=== PATIENT | male | born 1960 | race Asian ===

== ENCOUNTER 2022-12-09 21:31 | Inpatient (IN) | payer MEDICARE, MEDICAID ==
[~2022-12-09] VITALS: Ht 167.6 cm; Wt 74.8 kg
[2022-12-09] MEDS ORDERED: SODIUM CHLORIDE 0.9% 1000ML BAG (SEPSIS BOLUS) IV ONE (22:15)
[2022-12-09] MEDS ORDERED: METHYLPREDNISOLONE SOD SUCC 125 MG/2 ML VIAL IV STA (22:26)
[2022-12-09] MEDS ORDERED: IPRATROPIUM BROMIDE (0.02%) 0.5MG/2.5ML NEB HHN STA (22:26)
[2022-12-09] MEDS ORDERED: PIPERACILLIN/TAZ 3.375G PREMIX 50 ML IV NR (22:30)
[2022-12-09] MEDS ORDERED: ALBUTEROL (0.083%) 2.5MG/3ML NEB HHN SCH (22:30)
[2022-12-09] MEDS: VANCOMYCIN 1G PREMIX 200 ML IV NR (22:30)
[2022-12-09 22:31] LABS: CHLORIDE 108 mEq/L (98-107)
[2022-12-09 22:35] LABS: HEMATOCRIT. 46.4 % (42.0-52.0); HEMOGLOBIN. 14.9 g/dL (14.0-18.0); MEAN CORPUSCULAR VOLUME 90.1 fL (80.0-94.0); MEAN PLATELET VOLUME 7.1 fl (7.4-10.4); PLATELET 363 x1000/uL (130-400); RED BLOOD CELL COUNT 5.15 mill/uL (4.7-6.1)
[2022-12-09 23:18] LABS: PLATELET ESTIMATE NORMAL
[2022-12-10 00:33] LABS: BG CARBOXYHEMOGLOBIN 1.9 % (0.5-1.5); BG DEOXYHEMOGLOBIN 11.2 % (0.0-5.0); BG FRACTION INSPIRED OXYGEN 40; BG HCO3 ACT 19.5 mmol/L (22.0-26.0); BG METHEMOGLOBIN 0.3 % (0.0-1.5); BG OXYGEN SATURATION 88.5 % (92.0-98.5); BG OXYHEMOGLOBIN 86.6 % (94.0-97.0); BG PCO2 31.7 mmHg (35.0-45.0); BG PH 7.407 (7.350-7.450); BG PO2 54.6 mmHg (75.0-100.0); BG SAMPLE SITE RIGHT BRACHIAL; BG VENT MODE NASAL CANNULA
[2022-12-10] MEDS: VANCOMYCIN 1G PREMIX 200 ML IV NR ×3 (03:08→06:08)
[2022-12-10 09:38] LABS: BG BASE EXCESS -2.4 mmol/L (-2.0-2.0); BG CARBOXYHEMOGLOBIN 0.5 % (0.5-1.5); BG FRACTION INSPIRED OXYGEN 32; BG HCO3 ACT 22.5 mmol/L (22.0-26.0); BG METHEMOGLOBIN 0.3 % (0.0-1.5); BG OXYGEN SATURATION 92.9 % (92.0-98.5); BG OXYHEMOGLOBIN 92.2 % (94.0-97.0); BG PCO2 39.1 mmHg (35.0-45.0); BG PH 7.377 (7.350-7.450); BG PO2 67.1 mmHg (75.0-100.0); BG SAMPLE SITE RIGHT RADIAL; BG VENT MODE NASAL CANNULA
[2022-12-10] MEDS ORDERED: ALBUTEROL (0.083%) 2.5MG/3ML NEB HHN PRN (13:30)
[2022-12-10] MEDS ORDERED: FUROSEMIDE 40MG/4ML VIAL IVP NR (13:30)
[2022-12-10] MEDS ORDERED: IPRATROPIUM BROMIDE (0.02%) 0.5MG/2.5ML NEB HHN PRN (13:30)
[2022-12-10] MEDS ORDERED: PIPERACILLIN/TAZ 3.375G PREMIX 50 ML IV NR (14:00)
[2022-12-10] MEDS: IPRATROPIUM BROMIDE (0.02%) 0.5MG/2.5ML NEB HHN SCH (14:20)
[2022-12-10] MEDS ORDERED: AZITHROMYCIN 500MG/250ML 250 ML IV NR (18:00)
[2022-12-10 21:00] VITALS: BP 123/93
[2022-12-10 22:00] VITALS: BP 141/91
[2022-12-10] MEDS ORDERED: PIPERACILLIN/TAZOBACTAM 3.375 G in DEXTROSE 5% WATER 50 ML IV SCH (22:00)
[2022-12-10 23:14] LABS: CLARITY URINE CLEAR (CLEAR); COLOR URINE YELLOW (YELLOW); KETONES URINE NEGATIVE (NEGATIVE); LEUKOCYTE ESTERASE URINE TRACE (NEGATIVE); NITRITE URINE NEGATIVE (NEGATIVE); OCCULT BLOOD URINE 2+ (NEGATIVE); PH URINE 5.5 (4.5-8.0); PROTEIN URINE TRACE (NEGATIVE); SPECIFIC GRAVITY URINE 1.016 (1.005-1.030)
[2022-12-11] VITALS (13 sets, daily range): BP systolic 96–161; BP diastolic 57–115
[2022-12-11] MEDS: ALBUTEROL (0.083%) 2.5MG/3ML NEB HHN SCH ×4 (01:27→20:22)
[2022-12-11] MEDS: IPRATROPIUM BROMIDE (0.02%) 0.5MG/2.5ML NEB HHN SCH ×4 (01:27→20:22)
[2022-12-11] MEDS ORDERED: ASPI-1497 MT (03:11)
[2022-12-11] MEDS ORDERED: POLY17PO43 MT (03:11)
[2022-12-11] MEDS ORDERED: LURA60TA PO (03:11)
[2022-12-11] MEDS ORDERED: DOCU250C69 MT (03:11)
[2022-12-11] MEDS ORDERED: TAMS-11 MT (03:11)
[2022-12-11] MEDS ORDERED: OXYB5TAB17 PO (03:11)
[2022-12-11] MEDS ORDERED: HALO5TAB PO (03:11)
[2022-12-11] MEDS ORDERED: GLYC2TAB21 MT (03:11)
[2022-12-11] MEDS ORDERED: LOPE2CAP PO (03:11)
[2022-12-11] MEDS ORDERED: TEMA15CA PO (03:11)
[2022-12-11] MEDS ORDERED: HYDR453.3 TP (03:11)
[2022-12-11] MEDS ORDERED: CLOZ100T35 MT (03:11)
[2022-12-11] MEDS ORDERED: LORA2DIS6 IJ (03:11)
[2022-12-11] MEDS ORDERED: CALC-959 MT (03:11)
[2022-12-11] MEDS ORDERED: METO25TA6 MT (03:11)
[2022-12-11] MEDS ORDERED: OMEP20CA14 MT (03:11)
[2022-12-11] MEDS: PIPERACILLIN/TAZOBACTAM 3.375 G in DEXTROSE 5% WATER 50 ML IV SCH ×3 (06:44→20:57)
[2022-12-11 09:23] LABS: HEMATOCRIT. 38.8 % (42.0-52.0); HEMOGLOBIN. 12.9 g/dL (14.0-18.0); MEAN CORPUSCULAR HEMOGLOBIN 29.4 pg (28.0-32.0); MEAN CORPUSCULAR VOLUME 88.3 fL (80.0-94.0); PLATELET 353 x1000/uL (130-400); RED BLOOD CELL COUNT 4.39 mill/uL (4.7-6.1); RED CELL DISTRIBUTION WIDTH 13.1 % (11.6-14.6)
[2022-12-11] MEDS ORDERED: DIAZEPAM 5 MG/ML 2ML CPJ IV NR (09:45)
[2022-12-11 09:48] LABS: CHLORIDE 112 mEq/L (98-107)
[2022-12-11] MEDS ORDERED: HALOPERIDOL LACTATE 5MG/ML VIAL IM SCH (10:00)
[2022-12-11 12:06] LABS: PLATELET ESTIMATE NORMAL
[2022-12-11] MEDS: QUETIAPINE FUMARATE 25MG TABLET PO SCH ×2 (12:38→20:53)
[2022-12-11] MEDS: OMEPRAZOLE 20MG CAPSULE EXTENDED RELEASE PO SCH (12:38)
[2022-12-11] MEDS: OXYBUTYNIN CHLORIDE 5MG TABLET PO SCH (12:39)
[2022-12-11] MEDS: DILTIAZEM HCL 30MG TABLET PO SCH ×3 (12:39→23:54)
[2022-12-11] MEDS: METOPROLOL TARTRATE 25MG TABLET PO SCH ×2 (12:42→17:37)
[2022-12-11] MEDS ORDERED: POTASSIUM CHLORIDE 20MEQ TABLET SR PO NR (14:15)
[2022-12-11 17:00] LABS: INR 1.1; PROTHROMBIN TIME 11.3 sec (9.6-11.0)
[2022-12-11] MEDS: AZITHROMYCIN 500 MG in DEXT 5% WATER 250 ML IV SCH (17:36)
[2022-12-11] MEDS ORDERED: AZITHROMYCIN 500 MG in DEXT 5% WATER 250 ML IV SCH (18:00)
[2022-12-11] MEDS ORDERED: SODIUM CHLORIDE 0.9% 1,000 ML IV SCH (18:45)
[2022-12-11] MEDS: TAMSULOSIN HCL 0.4MG SR CAPSULE PO SCH (20:54)
[2022-12-11] MEDS: CLOZAPINE 100 MG PO SCH (20:55)
[2022-12-11] MEDS ORDERED: DEXT 5%/0.45% NACL 1000ML 1,000 ML IV SCH (22:30)
[2022-12-12] VITALS (16 sets, daily range): BP systolic 113–180; BP diastolic 68–121
[2022-12-12] MEDS: ALBUTEROL (0.083%) 2.5MG/3ML NEB HHN SCH ×4 (02:32→20:13)
[2022-12-12] MEDS: IPRATROPIUM BROMIDE (0.02%) 0.5MG/2.5ML NEB HHN SCH ×4 (02:32→20:13)
[2022-12-12] MEDS: PIPERACILLIN/TAZOBACTAM 3.375 G in DEXTROSE 5% WATER 50 ML IV SCH ×3 (05:02→22:01)
[2022-12-12] MEDS: DILTIAZEM HCL 30MG TABLET PO SCH ×3 (05:02→18:28)
[2022-12-12 07:04] LABS: BASOPHILS % 0.2 % (0.0-2.0); EOSINOPHILS % 0.4 % (0.0-5.0); HEMATOCRIT. 35.7 % (42.0-52.0); MEAN CORPUSCULAR HEMOGLOBIN 29.8 pg (28.0-32.0); MEAN CORPUSCULAR VOLUME 88.6 fL (80.0-94.0); MEAN PLATELET VOLUME 7.2 fl (7.4-10.4); MONOCYTES % 7.4 % (2.0-8.0); PLATELET 302 x1000/uL (130-400); RED BLOOD CELL COUNT 4.03 mill/uL (4.7-6.1)
[2022-12-12 09:24] LABS: CHLORIDE 109 mEq/L (98-107)
[2022-12-12] MEDS ORDERED: HALOPERIDOL 5MG TABLET PO SCH (11:30)
[2022-12-12] MEDS: METOPROLOL TARTRATE 25MG TABLET PO SCH ×2 (11:33→17:00)
[2022-12-12] MEDS: QUETIAPINE FUMARATE 25MG TABLET PO SCH ×2 (11:33→20:38)
[2022-12-12] MEDS: OXYBUTYNIN CHLORIDE 5MG TABLET PO SCH (11:33)
[2022-12-12] MEDS: OMEPRAZOLE 20MG CAPSULE EXTENDED RELEASE PO SCH (11:33)
[2022-12-12] MEDS: HALOPERIDOL 5MG TABLET PO SCH (14:30)
[2022-12-12] MEDS: AZITHROMYCIN 500 MG in DEXT 5% WATER 250 ML IV SCH (18:28)
[2022-12-12] MEDS: CLOZAPINE 100 MG PO SCH (20:39)
[2022-12-12] MEDS: TAMSULOSIN HCL 0.4MG SR CAPSULE PO SCH (20:39)
[2022-12-13] VITALS (16 sets, daily range): BP systolic 121–150; BP diastolic 75–99
[2022-12-13] MEDS: DILTIAZEM HCL 30MG TABLET PO SCH ×4 (00:26→18:15)
[2022-12-13] MEDS: IPRATROPIUM BROMIDE (0.02%) 0.5MG/2.5ML NEB HHN SCH ×4 (01:56→20:36)
[2022-12-13] MEDS: ALBUTEROL (0.083%) 2.5MG/3ML NEB HHN SCH ×3 (01:56→20:35)
[2022-12-13] MEDS: PIPERACILLIN/TAZOBACTAM 3.375 G in DEXTROSE 5% WATER 50 ML IV SCH ×3 (04:46→21:30)
[2022-12-13] MEDS: GUAIFENESIN 200MG/10ML SUGAR FREE UDC PO PRN (06:12)
[2022-12-13 08:11] LABS: ANTI-NUCLEAR ANTIBODIES DIRECT Negative (Negative)
[2022-12-13] MEDS: QUETIAPINE FUMARATE 25MG TABLET PO SCH ×2 (09:33→21:25)
[2022-12-13] MEDS: OXYBUTYNIN CHLORIDE 5MG TABLET PO SCH (09:34)
[2022-12-13] MEDS: FAMOTIDINE 20MG TABLET PO SCH ×2 (09:34→21:24)
[2022-12-13] MEDS: HALOPERIDOL 5MG TABLET PO SCH (09:34)
[2022-12-13] MEDS: METOPROLOL TARTRATE 25MG TABLET PO SCH ×2 (09:34→18:16)
[2022-12-13] MEDS: AZITHROMYCIN 500 MG in DEXT 5% WATER 250 ML IV SCH (18:16)
[2022-12-13] MEDS: TAMSULOSIN HCL 0.4MG SR CAPSULE PO SCH (21:25)
[2022-12-13] MEDS: CLOZAPINE 100 MG PO SCH (21:26)
[2022-12-14] VITALS (12 sets, daily range): BP systolic 110–152; BP diastolic 68–88
[2022-12-14] MEDS: DILTIAZEM HCL 30MG TABLET PO SCH ×5 (00:38→23:57)
[2022-12-14] MEDS: GUAIFENESIN 200MG/10ML SUGAR FREE UDC PO PRN (00:42)
[2022-12-14] MEDS: ALBUTEROL (0.083%) 2.5MG/3ML NEB HHN SCH ×4 (01:21→21:31)
[2022-12-14] MEDS: IPRATROPIUM BROMIDE (0.02%) 0.5MG/2.5ML NEB HHN SCH ×4 (01:21→21:31)
[2022-12-14] MEDS: PIPERACILLIN/TAZOBACTAM 3.375 G in DEXTROSE 5% WATER 50 ML IV SCH ×3 (05:10→22:06)
[2022-12-14 06:49] LABS: BASOPHILS % 0.2 % (0.0-2.0); EOSINOPHILS % 3.1 % (0.0-5.0); HEMATOCRIT. 36.8 % (42.0-52.0); HEMOGLOBIN. 12.1 g/dL (14.0-18.0); LYMPHOCYTES % 8.5 % (20.0-50.0); MEAN CORPUSCULAR VOLUME 88.3 fL (80.0-94.0); MEAN PLATELET VOLUME 7.4 fl (7.4-10.4); MONOCYTES % 7.9 % (2.0-8.0); NEUTROPHILS % 80.3 % (40.0-76.0); PLATELET 336 x1000/uL (130-400); RED BLOOD CELL COUNT 4.17 mill/uL (4.7-6.1)
[2022-12-14 06:50] LABS: CHLORIDE 106 mEq/L (98-107)
[2022-12-14] MEDS: METOPROLOL TARTRATE 25MG TABLET PO SCH ×2 (09:02→17:03)
[2022-12-14] MEDS: FAMOTIDINE 20MG TABLET PO SCH ×2 (09:02→20:41)
[2022-12-14] MEDS: OXYBUTYNIN CHLORIDE 5MG TABLET PO SCH (09:02)
[2022-12-14] MEDS: HALOPERIDOL 5MG TABLET PO SCH (09:03)
[2022-12-14] MEDS: QUETIAPINE FUMARATE 25MG TABLET PO SCH ×2 (09:03→20:41)
[2022-12-14] MEDS: AZITHROMYCIN 500 MG in DEXT 5% WATER 250 ML IV SCH (17:04)
[2022-12-14] MEDS: CLOZAPINE 100 MG PO SCH (20:41)
[2022-12-14] MEDS: TAMSULOSIN HCL 0.4MG SR CAPSULE PO SCH (20:41)
[2022-12-15] VITALS (12 sets, daily range): BP systolic 105–148; BP diastolic 58–81
[2022-12-15] MEDS: ALBUTEROL (0.083%) 2.5MG/3ML NEB HHN SCH ×3 (01:50→20:59)
[2022-12-15] MEDS: IPRATROPIUM BROMIDE (0.02%) 0.5MG/2.5ML NEB HHN SCH ×3 (01:50→20:59)
[2022-12-15] MEDS: PIPERACILLIN/TAZOBACTAM 3.375 G in DEXTROSE 5% WATER 50 ML IV SCH ×3 (05:36→21:07)
[2022-12-15] MEDS: DILTIAZEM HCL 30MG TABLET PO SCH ×4 (05:36→23:30)
[2022-12-15] MEDS ORDERED: LORAZEPAM 2MG/ML CPJ IV NR (08:00)
[2022-12-15 08:39] LABS: INR 1.1; PROTHROMBIN TIME 11.9 sec (9.6-11.0)
[2022-12-15] MEDS: METOPROLOL TARTRATE 25MG TABLET PO SCH ×2 (08:58→18:04)
[2022-12-15] MEDS: FAMOTIDINE 20MG TABLET PO SCH ×2 (08:58→21:00)
[2022-12-15] MEDS: HALOPERIDOL 5MG TABLET PO SCH (08:58)
[2022-12-15] MEDS: QUETIAPINE FUMARATE 25MG TABLET PO SCH ×2 (08:58→21:00)
[2022-12-15] MEDS: OXYBUTYNIN CHLORIDE 5MG TABLET PO SCH (09:18)
[2022-12-15 11:24] LABS: CHLORIDE 105 mEq/L (98-107); HEMATOCRIT. 37.7 % (42.0-52.0); HEMOGLOBIN. 12.3 g/dL (14.0-18.0); MEAN PLATELET VOLUME 7.8 fl (7.4-10.4); PLATELET 333 x1000/uL (130-400); RED BLOOD CELL COUNT 4.23 mill/uL (4.7-6.1); RED CELL DISTRIBUTION WIDTH 13.1 % (11.6-14.6)
[2022-12-15 12:00] LABS: PLATELET ESTIMATE NORMAL
[2022-12-15 15:23] LABS: BG BASE EXCESS 4.4 mmol/L (-2.0-2.0); BG CARBOXYHEMOGLOBIN 1.3 % (0.5-1.5); BG DEOXYHEMOGLOBIN 8.8 % (0.0-5.0); BG FRACTION INSPIRED OXYGEN 21; BG HCO3 ACT 27.3 mmol/L (22.0-26.0); BG METHEMOGLOBIN 0.3 % (0.0-1.5); BG OXYGEN SATURATION 91.1 % (92.0-98.5); BG OXYHEMOGLOBIN 89.6 % (94.0-97.0); BG PO2 60.2 mmHg (75.0-100.0); BG SAMPLE SITE RIGHT RADIAL; BG TOTAL HEMOGLOBIN 12.2 g/dL (12.0-18.0); BG VENT MODE ROOM AIR
[2022-12-15] MEDS: CLOZAPINE 100 MG PO SCH (21:00)
[2022-12-15] MEDS: TAMSULOSIN HCL 0.4MG SR CAPSULE PO SCH (21:00)
[2022-12-16] VITALS (9 sets, daily range): BP systolic 100–158; BP diastolic 55–101
[2022-12-16] MEDS: ALBUTEROL (0.083%) 2.5MG/3ML NEB HHN SCH ×3 (01:34→14:07)
[2022-12-16] MEDS: IPRATROPIUM BROMIDE (0.02%) 0.5MG/2.5ML NEB HHN SCH ×2 (01:34→09:15)
[2022-12-16] MEDS: DILTIAZEM HCL 30MG TABLET PO SCH ×2 (05:37→13:31)
[2022-12-16] MEDS: METOPROLOL TARTRATE 25MG TABLET PO SCH ×2 (10:34→16:02)
[2022-12-16] MEDS: OXYBUTYNIN CHLORIDE 5MG TABLET PO SCH (10:34)
[2022-12-16] MEDS: HALOPERIDOL 5MG TABLET PO SCH (10:34)
[2022-12-16] MEDS: FAMOTIDINE 20MG TABLET PO SCH (10:34)
[2022-12-16] MEDS: QUETIAPINE FUMARATE 25MG TABLET PO SCH (10:35)
[2022-12-16] MEDS: GUAIFENESIN 200MG/10ML SUGAR FREE UDC PO PRN (15:37)
== END 2022-12-16 17:00 | disposition home or self-care (01) | DRG 871 ==
LOC: ER 21:31 → MICUSO 23:56 → ENRESERV 12-10 19:41 → 5EST 12-10 22:18
PROVIDERS: ADMIT Internal Medicine; ATTEND Internal Medicine
PROC: 5A09357 Assistance with Respiratory Ventilation, Less than 24 Consecutive Hours, Continuous Positive Airway Pressure (ICD-10-PCS; 2022-12-10)
PROC: 0W993ZZ Drainage of Right Pleural Cavity, Percutaneous Approach (ICD-10-PCS; principal; 2022-12-15)
DX: A41.9 Sepsis, unspecified organism (principal); G93.41 Metabolic encephalopathy; J96.01 Acute respiratory failure with hypoxia; J18.9 Pneumonia, unspecified organism; J90 Pleural effusion, not elsewhere classified; N39.0 Urinary tract infection, site not specified; E87.20 Acidosis, unspecified; E11.65 Type 2 diabetes mellitus with hyperglycemia; I10 Essential (primary) hypertension; F79 Unspecified intellectual disabilities; D64.9 Anemia, unspecified; R62.50 Unspecified lack of expected normal physiological development in childhood; Z20.822 Contact with and (suspected) exposure to COVID-19; R26.9 Unspecified abnormalities of gait and mobility; R13.10 Dysphagia, unspecified
CPT/HCPCS: 32555; 36415; 36600; 71045; 71250; 80048; 80053; 81003; 82040; 82375; 82805; 82962; 83605; 83615; 83735; 83880; 84145; 85025; 85379; 86038; 86430; 87426; 87804; 88108; 92610; 93005; 93306; 93970; 94640; 94660; 96365; 96375; 97162; 97166; 99291; C9803; J0456; J1630; J1940; J2060; J2543; J2930; J3370; J7030; J7060